=== PATIENT | female | born 1935 | race Caucasian/White ===

== ENCOUNTER 2016-10-11 13:12 | Inpatient (IN) | payer MEDICARE ==
[~2016-10-11] VITALS: Ht 152.4 cm; Wt 56.1 kg
--- NOTE | 2016-10-11 14:10 | NUR ---
PT ARRIVAL TO ROOM WITH TRANSPORT TEAM. PT RESTING IN BED. PT ON ROOM AIR, LUNG SOUNDS CLEAR, O2 SATS 96%. PT WITH NG TUBE, CLAMPED. PT WITH COLOSTOMY, DRAINING SMALL AMOUNT OF LIQUID TANNISH STOOL. PT COMPLAINT OF ABD PAIN 7/10, NAUSEATED, ABD MODERATELY DISTENDED, PARTICULARLY ON LEFT SIDE. ADMISSION COMPLETED.
--- NOTE | 2016-10-11 14:50 | NUR ---
DR. GONCALVES NOTIFIED OF PT ARRIVAL. VERBAL ORDERS RECEIVED, RBOV.
--- NOTE | 2016-10-11 17:55 | NUR ---
ASKED BY DR. GONCALVES TO EVALUATE PATIENT FOR A POTENTIAL PICC LINE PLACEMENT. AFTER REVIEWING THE CHART AND INTERVIEWING THE PATIENT, NO ABSOLUTE CONTRAINDICATIONS WERE IDENTIFIED. PATIENT AGREEABLE TO PICC AND SIGNS CONSENT. PATIENT HAD JUST BEEN TRANSFERRED TO THIS FACILITY FROM [facility] AND WAS HAVING A HARD TIME WITH PERIPHERAL IV ACCESS. PATIENT NOTABLY HAD AN IV INFILTRATE IN HER LEFT AC AREA WHILE AT THE [facility], AND HER LEFT UPPER ARM REMAINS ECCHYMOTIC AND EDEMATOUS. RIGHT UPPER ARM WAS EVALUTED WITH THE SITE RITE U/S. BOTH THE BASILIC AND THE BRACHIAL VEINS WERE LOCATED AND IDENTIFIED POTENTIAL PICC LINE OPTIONS. BOTH VEINS WERE GREATER THAN 8 FR ON THE SITE RITE U/S. THE BRACHIAL VEIN WAS NOTED TO BE EVEN LARGER THAN THE BASILIC, BUT THE BASILIC WAS ATTEMPTED FIRST IT IS FARTHER AWAY FROM THE BRACHIAL ARTERY THAN THE BRACHIAL VEIN. BASILIC VEIN WAS ACCESSED UPON FIRST ATTEMPT AND PICC PROCEDURE WAS CONTINUED WITHOUT DIFFICULTIES. PICC WAS SECURED TO PATIENT'S ARM WITH 8 CM LEFT EXPOSED. WAITING FINAL CHEST XRAY CONFIRMATION AT THIS TIME. PATIENT ENCOURAGED TO ASK QUESTIONS ABOUT HER PICC LINE AND EDUCATION MATERIAL LEFT WITH PATIENT'S CHART.
--- NOTE | 2016-10-11 18:06 | NUR ---
DR. GONCALVES IN ROOM ASSESSING PATIENT AND APPROVAL GIVEN FOR PICC LINE USE PER DR. GONCALVES. REPORT GIVEN TO KORTNEY DA SILVA.
--- NOTE | 2016-10-11 18:47 | NUR ---
PT COMPLAINT OF PAIN AND NAUSEA. 0.5 MG IV DILAUDID AND 12.5 MG IV PHENERGAN GIVEN. PT RESTING IN BED. IV FLUIDS INFUSING TO LUDIVINA PICC. NG TUBE TO LIWS, DRAINING SMALL AMOUNT OF BROWNISH FLUID. PT DENIES OTHER NEEDS AT THIS TIME.
--- NOTE | 2016-10-11 19:10 | NUR ---
RECEIVED REPORT FROM DAY SHIFT RN. PATIENT IS RESTING IN BED. DR BOLAÑOS IN THE ROOM TO EVALAUATE PATIENT.
--- NOTE | 2016-10-11 19:30 | NUR ---
PT VOIDING 50 ML SINCE ADMISSION, BLADDER SCAN FOR [address] GONCALVES NOTIFIED, TELEPHONE ORDER TO PLACE NEWBY CATHETER IIF PT WILLING TO HAVE CATHETER.
--- NOTE | 2016-10-11 19:36 | NUR ---
PT TRANSFERED FROM [facility]. PT ALERT/ORIENTED. PT ON ROOM AIR, CONTINUOUS PULSE OX IN PLACE. PT WITH NG TUBE TO LIWS, DRAINING SMALL AMOUNT OF BROWN FLUID, PT IS NPO. PT WITH COLOSTOMY, SMALL AMOUNT OF TANNISH LIQUID STOOL. PT SBA TO BSC, VOIDING SMALL AMOUNT, URINARY RETENTION, NEW ORDER FOR NEWBY CATH. SCDS IN PLACE. PICC LINE PLACED TO E, INFUSING D5LR AT 100 ML/HR.
--- NOTE | 2016-10-11 20:51 | NUR ---
PATIENT ASSESMENT COMPLETED. PATIENT DENIES ANY PAIN OR NAUSEA AT THIS TIME. PATIENTS EVENING MEDICATIONS GIVEN PER ORDER. NEW NEWBY PLACED PER MD ORDER. PATIENT TOLERATED ACITIVY WELL. PATIENT HAS NG THAT IS ON LOW-INT SUCTION. PATIENT IS NPO AT THIS TIME. PATIENT MAY HAVE HARD CANDY. PATIENT HAS SCDS IN PLACE. PATIENT IS ON A PULSE OX THAT WAS RN INITIATED ON DAY SHIFT PATIENT IS SENSITIVE TO PAIN MEDICATION. PATIENT HAS A PICC ON HER UPPER RIGHT ARM THAT IS INFUSING. PATIENT DENIES ANY FURTHER NEEDS AT THIS TIME. CALL LIGHT IN REACH.
--- NOTE | 2016-10-11 22:21 | NUR ---
ABX DONE INFUSING. PATIENT CONTINUES TO HAVE IV FLUID INFUSING. PATIENT IS RESTING IN BED WITH EYES CLOSED. PATIENTS PULSE OX READINGS ARE WNL. CALL LIGHT IN REACH.
--- NOTE | 2016-10-12 00:31 | NUR ---
PATIENT GIVEN MOUTH SWABS PER REQUEST. PATIENT DENIES ANY PAIN AT THIS TIME. PATIENT DENIES ANY NAUSEA. NG CONTNUES TO BE ON LOW-INT SUCTION. PATIETNT HAS A NEWBY ON PLACE OUTPUT IS QS, URINE IS YELLOW IN COLOR. PATIENT DENIES ANY FURTHER NEEDS CALL LIGHT IN REACH.
--- NOTE | 2016-10-12 02:36 | NUR ---
PATIENTS VITALS TAKEN AND RECORDED. PATIENTS 0200 MEDICATIONS GIVEN PER PER ORDER. PATIENT DENIES ANY PAIN OR NAUSEA. PATIENT DENIES ANY NEEDS AT THIS TIME. CALL LIGHT IN REACH.
--- NOTE | 2016-10-12 04:16 | NUR ---
PATIENT IS RESTING IN BED WITH EYES CLOSED. PATIENTS PULSE OX READINGS ARE WNL. PATIENT CONTINUES TO HAVE NG ON LOW-INT SUCTION. CALL LIGHT IN REACH,
--- NOTE | 2016-10-12 05:05 | NUR ---
PATIENT RESTED WELL THROUGHOUT THE SHIFT. PATIENT DENIED ANY PAIN OR NAUSEA. PATIENT IS NPO, BUT MAY HAVE HARD CANDY. PATIENT HAS AN NG IN PLACE THAT IS ON LOW-INT SUCTION. PATIENT HAS ON SCDS AND PULSE OX. PATIENT HAS A NEWBY IN PLACE FOR RETENTION. URINE OUTPUT IS QS. PATIENT IS AAOX3 AND USES CALL LIGHT APPROPRIATELY. PATIENT HAS COLOSTOMY. PATIENT HAS PICC IN RIGHT UPPER ARM AND IS INFUSING WELL.
--- NOTE | 2016-10-12 05:54 | NUR ---
PATIENT IS RESTING IN BED. PATIENTS MORNING VITALS TAKEN AND RECORDED. PATIENT DENIES AN PAIN OR NAUSEA AT THIS TIME. PATIENT HAS 175 OUT IN NG FOR THE WHOLE SHIFT. PATIENT HAS NO CHANGES IN OUTPUT OF COLOSTOMY. PATIENT DENIES ANY NEEDS AT THIS TIME. CALL LIGHT IN REACH.
--- NOTE | 2016-10-12 07:10 | NUR ---
BEDSIDE HANDOFF REPORT RECIEVED FROM SANITARIAN INSPECTOR RN. PT RETURNED FROM XRAY.
--- NOTE | 2016-10-12 09:06 | NUR ---
LABS TODAY INDICATE SLIGHTLY LOW PHOS AND K+. MG+ IS NORMAL. TALKED WITH YENNIFER, PHARMACIST, ABOUT POSSIBLY STARTING TPN AT HALF THE NORMAL RATE FOR 2 LITERS SINCE PATIENT COULD BE AT RISK FOR REFEEDING. HER BMI IS NORMAL AT 24, BUT SHE HAS A LOT GOING ON MEDICALLY. YENNIFER WILL TALK WITH DR. GONCALVES TO SEE IF HE IS OK WITH STARTING THE TPN AT HALF THE RATE. MONITOR LABS FOR THE FIRST 24 HOURS OF TPN START. IF PHOS AND K+ NORMALIZE, THEN RATE CAN INCREASE TO 83 ML/HR. GLUCOSE WAS 119. NO PREALBUMIN ORDERED. WILL CONTINUE TO MONITOR.
--- NOTE | 2016-10-12 09:30 | NUR ---
PT RESTING IN BED. PT COMPLAINT OF PAIN AND NAUSEA, REQUESTING MEDICATION, 12.5 MG PHENERGAN AND 0.5 MG IV DILAUDID GIVEN. PT ON ROOM AIR, 02 SATS 96%, LUNG SOUNDS CLEAR. BOWEL TONES ACTIVE, NG TUBE TO LIWS, DRAING GREEN/BROWN FLUID. COLOSTOMY IN PLACE, SMALL AMOUNT OF REINIER PRESENT. NEWBY CATH IN PLACE, DRAINING FREELY. IV FLUIDS INFUSING D5LR AT 100 ML/HR, IV ABX INFUSING. PT DENIES OTHER NEEDS AT THIS TIME.
--- NOTE | 2016-10-12 11:31 | CONS ---
[facility] [address], [place] [address] Signed DATE OF CONSULTATION: 10/11/16 REFERRING PHYSICIAN: Dr. Nakul Overton. CHIEF COMPLAINT: Abdominal distention with decreased ileostomy output. HISTORY OF PRESENT ILLNESS Felisa is an 80-year-old female I first met back in October 2011. She has had a number of previous abdominal surgeries including an open cholecystectomy, open appendectomy and an open complete hysterectomy with removal of the uterus and the ovaries. She has also undergone an open right colectomy for what was presumed to be a co l on cancer. She had presented back in 2011 to [facility] in [place], [place]. She had a bowel obstruction. Dr. Gumaro Eubanks had treated her conservatively without any improvement. He took her to the operating room for 6 hours of extensive lysis of adhesions to free up her entire abdomen. There was no enterotomy during that surgery. She was doing well initially. She was turned over to Dr. Jeff Fonseca after a few days. She developed purulence in the wound on postoperative day 6. Of course, t h e wound was opened and treated conservatively. A CT scan was performed. There were no obvious intraabdominal infections. She had a little postoperative fluid in the pelvis. Unfortunately, fecalith material began to drain through the wound. She was then transferred to [facility]. She went back to surgery and there was discussion of some damage to the mesentery of the colon and apparently an additional portion of the proximal transverse colon was then removed. She was then given a right lower quadrant Leah ileostomy. Of course, the wound was left open and she was taken back daily for washout of the abdomen. Eventually she was closed. During several of these washouts, there was bile noted in the right upper quadrant possibly from a w all surface on the edge of the liver. Therefore, she underwent an ERCP with sphincterotomy and placement of an endobiliary stent. She also had a duodenal stent placed. Eventually these stents were removed. The bile leak resolved. During all this, she developed a blood clot in her soleal vein. When placed on her anticoagulation, she bled from the sphincterotomy site. The anticoagulation had to be stopped and an inferior vena cava filter was placed. Unfortunately, she aspirated when taking p.o. and ended up with pneumonia. In due time, she improved and made her way back to [place], [place]. She slowly but surely improved and she had a nasoenteric feeding tube in place. She continues to live in [place], [place] with her . Apparently he has a little Alzheimer's. She was cleaning her garage 3 days ago and felt she over did it. By the next day, she had abdominal distention with some nausea and she knew she had a bowel obstruction. She went to [facility] in [place]. An NG tube was placed with return of clear green bilious fluid. It was not a particularly large amount. She has had several peripheral IVs placed and unfortunately her peripheral veins are quite fragile. During all of this, she did undergo a CT scan and there is mention of infiltrate in the left lower lobe with maybe cavity and/or some cyst. However, Felisa does not feel like she has any pulmonary symptoms. I was called earlier today by Dr. Overton while in office if I would accept Felisa in transfer here at [place] Electronically Signed By: RODRÍGUEZ GONCALVES MD 10/12/16 1131 PATIENT NAME: FELISA LUNA CONSULTATION DATE OF : 31 PHYSICIAN: RODRÍGUEZ GONCALVES MD REPORT #: [id number] REPORT IS CONFIDENTIAL AND NOT TO BE RELEASED WITHOUT AUTHORIZATION [facility] [address], [place] [address] Signed Hospital as a general surgeon distribution center manager. In the meantime, Felisa has arrived and we did have a PICC line placed because of her tenuous peripheral IV access. We will run IV fluids tonight and will be able to start our TPN tomorrow. In the meantime, she seems to be doing fi ne. ALLERGIES: Pro-Banthine, Risperdal and Stadol. MEDICATIONS Morphine extended release 15 mg 1 tablet p.o. b.i.d., fluticasone spray 2 sprays both nostrils daily, Loratadine 10 mg 1 tablet p.o. daily, levothyroxine 100 mcg p.o. daily, propranolol 20 mg p.o. b.i.d., omeprazole 40 mg 1 tablet p.o. b.i.d., sertraline 100 mg 1 tablet p.o. daily. PAST MEDICAL HISTORY Familial tremors, insomnia, paroxysmal atrial fibrillation, hypertension, deep vein thrombosis of the leg, aspiration pneumonia, dysphagia, esophageal reflux, constipation, right-sided colon cancer, hyperlipidemia, hypothyroidism, osteoporosis, possible type 2 diabetes, migraine headaches, depression, chronic pain syndrome, anemia and question of breast cancer. PAST SURGICAL HISTORY Tonsillectomy and adenoidectomy; right upper lobe lobectomy for lung cancer; bilateral prophylactic mastectomies; right colectomy in 1991 for colon cancer in [place], [place]; lysis of adhesions in the for small-bowel obstruction and again in 2012; open appendectomy; open cholecystectomy in the ; a full hysterectomy in the ; back surgery; bilateral rotator cuff repairs in 1993; a left shoulder replacement; ERCP with endoscopic sphincterotomy; placement of inferior vena cava filter; partial transverse colectomy with right lower quadrant Leah ileostomy in 2011. SOCIAL HISTORY She does not smoke or drink. She is and lives with her in [place], [place] Dr. Nakul Overton is her primary care provider. FAMILY HISTORY Brot her had lung cancer and a sister had throat cancer. Father had heart disease and at age 63. Mother had breast cancer at age 92. There have been no abnormal reactions to anesthesia. REVIEW OF SYSTEMS I reviewed 10 systems with Felisa today and we talked about her shoulder surgery. Otherwise, she has done pretty well since I have seen her last. VITAL SIGNS Blood pressure 128/68, heart rate 79, respiratory rate 18, temperature is 97.7. She is 5 Electronically Signed By: RODRÍGUEZ GONCALVES MD 10/12/16 1131 PATIENT NAME: FELISA LUNA CONSULTATION DATE OF : 31 PHYSICIAN: RODRÍGUEZ GONCALVES MD REPORT #: [id number] REPORT IS CONFIDENTIAL AND NOT TO BE RELEASED WITHOUT AUTHORIZATION [facility] [address], [place] [address] Signed feet, 56 kg. LABORATORY DATA Her white blood cell count is 8.5 with neutrophils 71, hemoglobin 10.8 with mean cell volume 89. BUN 24, creatinine is 1.30. Her GFR is 42, her albumin is 3.1. Urinalysis unremarkable. Her initial lactic acid was 2.8, I do not see a follow-up lactic acid level. RADIOGRAPHIC STUDIES I see the report from her CT scan of the abdomen and pelvis on 10/10/2016, all we have is impression and it says that there are distended fluid-filled loops of small bowel and then decompressed ilium leading up to her ileostomy and exact transition point is not known, there appears to be a left lower lobe infiltrate with some cystic structures and maybe some cavitation. PHYSICAL EXAMINATION GENERAL: Felisa is an 80-year-old female, lying supine in her hospital bed. I see the NG tube in place. There is clear green bile in the tube. She is alert, awake and interactive. She is under no acute distress. She is not systemically ill or toxic. LUNGS: Clear to auscultation bilaterally. HEART: Regular rate and rhythm with quiet systolic ejection murmur, maybe 2/6. ABDOMEN: Shows moderate distention, some moderate firmness, mildly tender but no peritoneal signs or symptoms. No evidence of any incisional hernias. She has an ileostomy in the right lower quadrant with just a little light brown to green colored fluid in the bag. RECTAL: Exam is not performed currently. ASSESSMENT AND PLAN Felisa is an 80-year-old female with a complex past medical history as listed above. Most likely, she has an adhesion causing her bowel obstruction with decreased ileostomy output. Unfortunately, she had a nearly frozen abdomen previously and it took 6 hours to get through her abdomen now that may or may not be true on this occasion but certainly something to keep in mind. Currently, we are going to treat her conservatively for the bowel obstruction. We have already placed the PICC line and we will start our TPN tomorrow, give her IV fluids tonight and leave the NG tube in place. She declined a Soni catheter at this time. In addition, we are going to start her on Rocephin and Zithromax for the presumed pneumonia and we will have our Internal Medicine Service see her with respect to medical evaluation and treatment. I have reviewed this with Felisa, she has expressed understanding and agrees with above plan. Rodríguez Goncalves MD Electronically Signed By: RODRÍGUEZ GONCALVES MD 10/12/16 1131 PATIENT NAME: FELISA LUNA CONSULTATION DATE OF : 31 PHYSICIAN: RODRÍGUEZ GONCALVES MD REPORT #: [id number] REPORT IS CONFIDENTIAL AND NOT TO BE RELEASED WITHOUT AUTHORIZATION [address] [place] [address] Signed /Katelynn /[id number] cc: Nakul Overton MD Electronically Signed By: RODRÍGUEZ GONCALVES MD 10/12/16 1131 PATIENT NAME: FELISA LUNA CONSULTATION DATE OF : 31 PHYSICIAN: RODRÍGUEZ GONCALVES MD REPORT #: [id number] REPORT IS CONFIDENTIAL AND NOT TO BE RELEASED WITHOUT AUTHORIZATION
--- NOTE | 2016-10-12 12:30 | NUR ---
PT RESTING IN BED. MD TO BEDSIDE. PT WITH HYPOACTIVE BOWEL TONES, CONTNIUES TO HAVE NAUSEA, NG TUBE TO LIWS. IV FLUIDS INFUSING AT 100 ML/HR. PT DENIES NEEDS AT THIS TIME.
--- NOTE | 2016-10-12 14:30 | NUR ---
PT REQUESTING PAIN MEDICATION AND ANTIEMETIC. GIVEN 0.5 MG IV DILAUDID AND 12.5 MG IV PHENERGAN. PT RESTING IN BED. DENIES OTHER NEEDS AT THIS TIME.
[2016-10-12] MEDS ORDERED: SERTRALINE HCL100 MG PO (15:28)
[2016-10-12] MEDS ORDERED: OMEPRAZOLE40 MG PO (15:29)
[2016-10-12] MEDS ORDERED: MORPHINE SULFAT15 M1 PO (15:30)
[2016-10-12] MEDS ORDERED: PROPRANOLOL HCL20 MG PO (15:32)
[2016-10-12] MEDS ORDERED: LEVOTHYROXINE100 MCG PO (15:32)
[2016-10-12] MEDS ORDERED: ONE DAILY1 EAC1 PO (15:33)
[2016-10-12] MEDS ORDERED: FLUTICASONE PRO16 GM NAS (15:34)
[2016-10-12] MEDS ORDERED: LORATADINE10 MG PO (15:34)
--- NOTE | 2016-10-12 15:35 | NUR ---
MED REC COMPLETE WITH [facility] MEDICATION REFILL LIST.
--- NOTE | 2016-10-12 16:30 | NUR ---
TPN INFUSION BEGAN, SECOND RN VERIFICATION OF TPN AGAINST ORDER. PT REQUESTING PAIN MEDICATION AND ANTIEMETIC, GIVEN 0.5 MG IV DILAUDID AND 12.5 MG PHENERGAN. PT DENIES OTHER NEEDS. PT ON ROOM AIR, O2 SATS 96%. NEWBY CATH IN PLACE, DRAINING YELLOW URINE. BOWEL TONES CONTINUE TO BE HYPOACTIVE, SMALL AMOUNT OF STOOL IN COLOSTOMY BAG, UNCHANGED.
--- NOTE | 2016-10-12 18:14 | NUR ---
PT ALERT/ORIENTED. PT ON ROOM AIR. NG TUBE TO LIWS. TPN BEGAN THIS EVENING, PT TOLERATING WELL. PT WITH ACTIVE TO HYPOACTIVE BOWEL TONES, CONTINUES TO HAVE NAUSEA, SMALL AMOUNT OF STOOL IN OSTOMY. PICC LINE TO LENNY PEÑA, INFUSING. PT SBA TO AMBULATE. NEWBY CATH IN PLACE, QS.
--- NOTE | 2016-10-12 18:25 | EKG ---
[facility] [address] [facility] [place] [address] Signed Normal sinus rhythm Nonspecific T wave abnormality Abnormal ECG No previous ECGs available Confirmed by TORIBIO BOLAÑOS MD ([id number]) on 10/12/2016 6:25:20 PM Electronically Signed By: TORIBIO BOLAÑOS MD 10/12/16 1825 PATIENT NAME: ANTONIO LUNA Electrocardiogram DATE OF : 31 PHYSICIAN: TORIBIO BOLAÑOS MD REPORT #: [id number] REPORT IS CONFIDENTIAL AND NOT TO BE RELEASED WITHOUT AUTHORIZATION
--- NOTE | 2016-10-12 19:33 | NUR ---
PT REQUESTING PAIN MEDICATION. PT RATES PAIN 7/10, 0.5 MG IV DILAUDID GIVEN. PT DENIES OTHER NEEDS AT THIS TIME.
--- NOTE | 2016-10-12 20:00 | NUR ---
RECEIVED REPORT AT 1900. FOUND PT IN BED RESTNG. PT COMPLAINED OF PAIN BEING 7/10. OTHERWISE PT SEEMED IN GOOD SPIRITS.
--- NOTE | 2016-10-12 22:20 | NUR ---
LABETALOL 5MG IV WAS HELD AT 2100 DUE TO A SBP OF 104. ALL LOBES ARE CLEAR. ALL QUADRANTS HAVE HYPOACTIVE BOWEL SOUNDS. PT COMPLAINED OF PAIN 7/10 AND NAUSEA. ANOTHER 0.5MG IV DILAUDED IV WAS GIVEN WELL 8MG OF IV ZOFRAN. ABD IN LOWER LEFT QUADRANT IS FIRM AND TENDER TO TOUCH. HER COLOSTOMY HAS OUTPUT BUT IT HAS LESSEND ACORDING TO PT. URINE OUTPUT SO FAR IS OK. NO NEW ISSUES NOTED THUS FAR.
--- NOTE | 2016-10-13 01:00 | NUR ---
PT COMPLAINED OF NAUSEA. 12.5MG OF PHENERGAN IV WAS GIVEN.
--- NOTE | 2016-10-13 02:57 | NUR ---
AT O230 PT RECEIVED ANOTHER 8MG OF ZOFRAN IV. PT NOW STATED THAT HER NAUSEA HAS NOT GOTTEN ANY BETTER. SHE STATED THAT IS SEEMS TO GET PROGRESSIVELY WORSE. PT HAS BEEN SPEETING UP BUT HAS NOT ACTUALLY VOMITED ON THIS SHIFT. CALLING MD BOLAÑOS AT THIS TIME.
--- NOTE | 2016-10-13 03:14 | NUR ---
PT IS STILL SLEEPING
--- NOTE | 2016-10-13 03:15 | NUR ---
MD BOLAÑOS DEFERED ME TO MD GONCALVES. MD GONCALVES GAVE ME AN ORDER FOR A ONE TIME SCOPALAMIN PATCH. PT IS USING BSC AT THIS TIME. PT IS MOVING WELL OVERALL. PT HAS BOWEL TONES IN RUQ, LUQ AND LLQ, PT ALSO STATED THAT COLOSTOMY BAG IS FILLED WITH GAS.
--- NOTE | 2016-10-13 04:00 | NUR ---
PT IS RESTING IN BED.
--- NOTE | 2016-10-13 05:10 | NUR ---
PT FOR THE MOST PART OF THIS SHIFT HAD UNCONTROLLED PAIN 7-09/20. PT WAS ALSO VERY NAUSEADED UNTIL ABOUT 0400. LABETALOL 5MG IV WAS HELD A 2100 AND AT 0200 DUE TO SBP OF 104 BOTH TIMES. MD GONCALVES WAS ALSO CALLED DUE TO THE PT INCREASES NAUSEA AND A SCOPALAMINE PATCH WAS ORDERED. IV LIPIDS ARE FININSHED. TPN IS STILL GOING. URINE OUTPUT IS ADEQUATE NG OUTPUT SO FAR HAS BEEN 100ML BY 0200. PT AT THIS TIME IS SLEEPING FOR THE FIRST TIME THIS SHIFT. PT HAS SOME IV MEDICATIONS THAT ARE DUE AT THE SAME TIME WHICH ARE NOT COMPATABLE. THE SAME GOES FOR SOME PRN IV MEDS. PLEASE SEE LIST IN PT ROOM BY COMPUTER.
--- NOTE | 2016-10-13 07:00 | NUR ---
BEDSIDE HANDOFF REPORT RECEIVED FROM HIGH SCHOOL CHEMISTRY TEACHER RN. PT SLEEPING. TPN INFUSING. NEWBY CATH IN PLACE, DRAINING FREELY.
--- NOTE | 2016-10-13 08:30 | NUR ---
PT RESTING IN BED, SLEEPY BUT AROUSABLE TO VOICE. NG TUBE TO LIWS. PT ON ROOM AIR, LUNG SOUNDS CLEAR, O2 SATS 98%. PT COMPLAINT OF NAUSEA AND ABDOMINAL PAIN. PT BOWEL TONES ACTIVE, SMALL AMOUNT OF LIQUID STOOL IN COLOSTOMY BAG. TPN INFUSING. IV ABX INFUSING. PT DENIES NEEDS AT THIS TIME, ALLOWED TO REST.
--- NOTE | 2016-10-13 10:27 | NUR ---
PT IS RAMA IN BED WITH NANCY LIGHT IN REACH. PT DID NOT NEED ANYTHING ELSE AT THE MOMENT
--- NOTE | 2016-10-13 10:30 | NUR ---
PT COMPLAINT OF NAUSEA AND ABD PAIN. GIVEN 1 MG IV DILAUDID AND 8 MG IV ZOFRAN. DRAW SHEET AND PERICARE PERFORMED. PT DENIES OTHER NEEDS AT THIS TIME.
--- NOTE | 2016-10-13 11:00 | NUR ---
FAMILY AT BEDSIDE, REQUESTING PT UPDATE. DISCUSSED PLAN OF CARE WITH FAMILY. FAMILY REQUESTING TO SPEAK WITH MD ABOUT PLAN, MESSAGE LEFT FOR DR. GONCALVES.
--- NOTE | 2016-10-13 13:48 | NUR ---
PT ASSISTED TO SHOWER. PT ENCOURAGED TO SIT IN CHAIR, WAS TIRED AFTER SHOWER, ASSITED TO BED. NG TO LIWS. TPN INFUSING. PT PROVIDED WITH WARM BLANKET, DENIES OTHER NEEDS AT THIS TIME, FAMILY AT BEDSIDE.
--- NOTE | 2016-10-13 13:51 | NUR ---
PT SHOWERED AND IS NOW BACK IN BED RESTING SAFELY WITH CALL LIGHT IN REACH. PT ASKED FOR A WARM BLANKET
--- NOTE | 2016-10-13 15:42 | NUR ---
PT RESTING IN BED. PT RATING PAIN 7/10, UNCHANGED. PT GIVEN 1 MG IV DILAUDID. PT DENIES OTHER NEEDS.
--- NOTE | 2016-10-13 16:02 | NUR ---
NEW TPN BAG INFUSING, DOUBLE RN VERIFICATION OF ORDER AND TPN WITH ORLY SHEETS. PT RESTING IN BED. PT DENIES NEEDS AT THIS TIME.
--- NOTE | 2016-10-13 17:17 | NUR ---
PT RESTING IN BED. PT COMPLAINT OF NAUSEA. GIVEN 8 MG IV ZOFRAN. PT DENIES OTHER NEEDS AT THIS TIME.
--- NOTE | 2016-10-13 18:17 | NUR ---
PT ALERT/ORIENTED, SLEEPY DURING MOST OF SHIFT. PT ON ROOM AIR, CONTINUOUS PULSE OX IN PLACE, O2 SATS 96%. PT BOWLE TONES CONTINUE TO BE HYPOACTIVE TO ACTIVE. RECEIVING ZOFRAN, PHENERGAN, FOR NAUSEA, SCOPALAMINE PATCH IN PLACE. PAIN CONTROLLED WITH 1MG IV DILAUDID. SMALL AMOUNT OF WATER STOOL IN COLOSTOMY. RECEIVING TPN. NEWBY CATH IN PLACE, QS.
--- NOTE | 2016-10-13 18:18 | NUR ---
PT IS RESTING IN BED WITH EYES COSED, RESPERATION EVEN. PT WOKE UP FOR VITAS AND IS NOW TRYING TO FALL BACK ASLEEP. PT DID NOT NEED ANYTHING JUST WANTED TO SLEEP
--- NOTE | 2016-10-13 19:10 | NUR ---
BEDSIDE REPORT RECEIVED FROM OFFGOING NURSE. PT LYING IN BED WITH EYES CLOSED, WAKES EASILY. DENIES NEEDS AT THIS TIME. CALL LIGHT WITHIN REACH.
--- NOTE | 2016-10-13 20:20 | NUR ---
PT ASSESSMENT COMPLETED. BT'S ACTIVE. ABD DISTENDED. PT REPORTS TENDERNESS TO LLQ SPECIFICALLY. PT RATES PAIN 6.5/10, REQUESTS PAIN MEDICATION. PAIN MEDICATION ADMINISTERED. PT DENIES OTHER NEEDS AT THIS TIME. CALL LIGHT WITHIN REACH.
--- NOTE | 2016-10-13 22:20 | NUR ---
PT CALLS REQUESTING MEDICATION FOR NAUSEA. PHENERGRAN ADMINSITERED ON THE PUMP OVER 10 MINUTES, DILUTED IN 20 OF NS. PT DENIES OTHER NEEDS AT THIS TIME. CALL LIGHT WITHIN REACH.
--- NOTE | 2016-10-14 00:42 | NUR ---
PT CALLS STATING SHE HAS NAUSEA. PRN ZOFRAN ADMINISTERED. PT ALSO RATES PAIN 7/10. PRN DILAUDID ADMINISTERED PT DENIES OTHER NEEDS AT THIS TIME. CALL LIGHT WITHIN REACH.
--- NOTE | 2016-10-14 02:00 | NUR ---
PT RESTING IN BED WITH EYES CLOSED. RESPIRATIONS EVEN AND UNLABORED. APPEARS TO BE SLEEPING. CALL LIGHT WITHIN REACH.
--- NOTE | 2016-10-14 02:08 | NUR ---
PATIENT IS LAYING ON HER BACK, EYES CLOSED, BREATHING 16 BPM.
--- NOTE | 2016-10-14 02:40 | NUR ---
PT RESTING WITH EYES CLOSED. WAKES EASILY FOR BP MEASUREMENT, QUICKLY FALLS BACK TO SLEEP WHILE MEDICATION BEING ADMINISTERED. CALL LIGHT WITHIN REACH.
--- NOTE | 2016-10-14 03:45 | NUR ---
PT RESTING WITH EYES CLOSED. PT DOES NOT AWAKE UPON LANDSCAPE ARCHITECT'S ENTRY. BRIEFLY AWAKES UPON IV BEING DISCONNECTED, AND QUICKLY FALLS BACK TO SLEEP RESPIRATIONS EVEN AND UNLABORED SAO2 96%. CALL LIGHT WITHIN PT REACH.
--- NOTE | 2016-10-14 05:27 | NUR ---
PT SLEPT THROUGHOUT THE NIGHT. DILAUDID X 2, PHENERGAN X2, AND ZOFRAN X 1. CPOX IN PLACE, PT ON RA. NEWBY CATH AND OSTOMY. OSTOMY DRAINING BROWN, WATERY LIQUID. BOWEL TONES ACTIVE. NG TUBE TO LOW INT. WALL SUCTION, DRAINING GREEN/BROWN LIQUID. DRAINED 150 THIS SHIFT. ABD REMAINS DISTENEDED, TENDER MEREDITH TO LLQ. SBA. DOUBLE LUMEN PICC WITH TPN @ 61.677. ACCUCHECKS.
--- NOTE | 2016-10-14 06:03 | NUR ---
PT UTILIZES CALL LIGHT, REPORTS NAUSEA. PRN PHENERGAN ADMINISTERED. DENIES OTHER NEEDS. CALL LIGHT WITHIN REACH.
--- NOTE | 2016-10-14 06:40 | NUR ---
PT UTILIZES CALL LIGHT, REQUESTS PAIN MEDICATION. RATES PAIN 8/10 TO LLQ. PRN DILAUDID ADMINISTERED. PT DENIES OTHER NEEDS. CALL LIGHT WITHIN REACH.
--- NOTE | 2016-10-14 07:07 | NUR ---
BEDSIDE HANDOFF REPORT RECEIVED FROM ASSOCIATE PROFESSOR COMPUTER SCIENCE RN. PT SLEEPING, LEFT UNDISTURBED, IV TPN INFUSING.
--- NOTE | 2016-10-14 08:00 | NUR ---
PT RESTING IN BED. PT SLEEPY, AROUSABLE TO VOICE. PT COMPLAINT OF NAUSEA, GIVEN 8 MG IV ZOFRAN. NG TUBE TO LIWS. TPN INFUSING. LUNG SOUNDS CLEAR, ON ROOM AIR. PT BOWEL TONES ACTIVE, SMALL AMOUNT OF TICKER STOOL AROUNDS STOMA, STOMACH REMAINS MODERATELY DISTENDED. CMS INTACT, NO EDEMA NOTED. PT DENIES NEEDS AT THIS TIME.
--- NOTE | 2016-10-14 11:38 | NUR ---
PT REQUESTING PAIN MEDICATION AND ANTIEMETIC. GIVEN 1 MG IV DILAUDID AND 12.5 MG IV PHENERGAN. TPN INFUSING. RED LUMEN, HEP LOCKED, DOES HAVE BLOOD RETURN. NG TUBE CONNECTED TO NEWBY BAG, TO GRAVITY. PT DENIES OTHER NEEDS AT THIS TIME.
--- NOTE | 2016-10-14 13:52 | NUR ---
PT RESTING IN BED. PT GIVEN IV ZOFRAN AND IV DILAUDID FOR PAIN AND NAUSEA. TPN CONTINUES TO INFUSE. IV ABX INFUSING. LUNG SOUNDS CLEAR. BOWEL TONES HYPERACTIVE, CONTINUES TO HAVE THICK STOOL IN OSTOMY. NG TUBE TO GRAVITY. PT DENIES OTHER NEEDS AT THIS TIME. ENCOURAGED TO SIT IN CHAIR OR WALK AGAIN THIS AFTERNOON.
--- NOTE | 2016-10-14 17:17 | NUR ---
PT REQUESTING PAIN MEDICATION AND ANTIEMETIC. GIVEN 12.5 MG IV PHENERGAN AND 1 MG IV DIALUDID. PT RESTING IN BED. PT DENIES NEEDS AT THIS TIME.
--- NOTE | 2016-10-14 18:05 | NUR ---
PT WITH IMRPOVMENT TODAY, HAD MODERATE AMOUNT OF THICK STOOL IN OSTOMY. PT CONTINUES TO HAVE NAUSEA AND ABD PAIN. ZOFRAN, PHENERGAN, DILAUDID GIVEN, SCOPALAMINE PACTH IN PLACE. PT SAT IN CHAIR. BOWEL TONES HYPERACTIVE THIS EVENING. NG TUBE PLACED TO GRAVITY. NEWBY IN PLACE, QS. TPN INFUSING.
--- NOTE | 2016-10-14 19:15 | NUR ---
BEDSIDE REPORT RECEIVED FROM OFFGOING NURSE. PT LYING IN BED WITH EYES CLOSED. WAKES EASILY. PT DENIES NEEDS AT THIS TIME. CALL LIGHT WITHIN REACH.
--- NOTE | 2016-10-14 20:35 | NUR ---
PT ASSESSMENT COMPLETED. PT RESTING IN BED WITH EYES CLOSED, WAKES EASILY. FALLS BACK TO SLEEP EASILY. NG TUBE TO NEWBY BAG, GRAVITY DRAIN. BOWEL TONES ACTIVE. ABD REMAINS DISTENED, TENDER TO THE TOUCH. OSTOMY PUTTING OUT SOFT STOOL. NEWBY DRAINING CLEAR YELLOW URINE. PT REQUESTS TO HAVE PULL UP ATTEND PLACED FOR "LEAKAGE". PT ABLE TO SIT AT BEDSIDE, AND STAND WITH ASSISTANCE. PT REPORTS PAIN 6-7/10.
--- NOTE | 2016-10-14 21:55 | NUR ---
PT CALLS, REQUESTS PAIN MEDICATION. RATES PAIN 6-7/10 TO ABDOMEN. PRN DILAUDID ADMINISTERED. PT REPORTS IMPROVEMENT AFTER ADMINISTRATION. PT DENIES OTHER NEEDS AT THIS TIME. CALL LIGHT WITHIN REACH.
--- NOTE | 2016-10-15 00:19 | NUR ---
PT RESTING IN BED WITH EYES CLOSED. RESPIRATIONS ARE EVEN AND UNLABORED. PT APPEARS TO BE SLEEPING WITH CALL LIGHT IN REACH.
--- NOTE | 2016-10-15 02:00 | NUR ---
PT CALLS, REQUESTS MEDICATION FOR NAUSEA. PRN PHENERGAN ADMINISTERED. PT RATES PAIN 6/10 TO LLQ. PT ASSESSMENT COMPLETE. PT DROWSY, EYES REMAIN CLOSED THROUGHOUT ASSESSMENT. ABD CONTINUES TO BE DISTENDED, TENDER TO PALPATION. BT'S ACTIVE. COLOSTOMY PUTTING OUT SOFT BROWN STOOL. NG TUBE TO NEWBY BAG AT BEDSIDE. URINE CATHETER PUTTING OUT CLEAR YELOW URINE.RED LUMEN TO PICC LINE FLUSHES, UNABLE TO DRAW BLOOD BACK. PT DENIES OTHER NEEDS AT THIS TIME. PT STATES SHE "FEELS GOOD" WHEN ASKED IF NAUSEA IS RESOVED. NANCY LIGHT WITHIN REACH.
--- NOTE | 2016-10-15 03:43 | NUR ---
PT USES CALL LIGHT, REQUESTS PAIN MEDICATION. PT RATES PAIN 7/10 TO ABD. PRN DILAUDID ADMINISTERED. PT DENIES OTHER NEEDS. CALL LIGHT WITHIN REACH.
--- NOTE | 2016-10-15 05:31 | NUR ---
PT SLEPT MAJORITY OF SHIFT. DILAUDID X2 FOR ABD PAIN, PHENERGAN X 1 FOR NAUSEA. ABDOMEN REMAINS DISTENDED, TENDER TO PALPATION. BT'S ACTIVE. COLOSTOMY PUTTING OUT SOFT STOOL, THICKER THAN PREVIOUS. NEWBY DRAINING CLEAR YELLOW URINE.NG TUBE TO GRAVITY. PICC TO RAC, DOUBLE LUMEN. TPN INFUSING @ 83.8. RED LUMEN FLUSHES, NO BLOOD RETURN. SBA.
--- NOTE | 2016-10-15 07:28 | NUR ---
BEDSIDE REPORT RECEIVED FROM SHARON SHEETS. PT SLEEPING UPON INITIAL CHECK ON PATIENT. PATIENT CALLED USING CALL LIGHT AND ASKED FOR PAIN MEDICATION. NG TUBE TO GRAVITY. NEWBY CATHETER IN PLACE. CONTINUOUS PULSE OX IN PLACE. TPN INFUSING.
--- NOTE | 2016-10-15 08:33 | NUR ---
PATIENT IN BED. WASHED FACE AND HANDS WITH WASH CLOTH. PATIENT STATES THAT SHE WOULD LIKE TO SHOWER LATER TODAY. NO OTHER NEEDS AT THIS TIME.
--- NOTE | 2016-10-15 08:36 | NUR ---
BLINDS RAISED IN ROOM. PT AWAKE WATCHING TELEVISION. UNASYN INFUSING NOW. TPN INFUSING AT 83.8ML/HR. DILAUDID GIVEN FOR ABD PAIN. FSBS 149. POSITIVE BOWEL TONES. COLOSTOMY DRAINING SOFT STOOLS.
--- NOTE | 2016-10-15 10:38 | NUR ---
NG TUBE AND NEWBY CATHETER REMOVED PER MD ORDERS. CLEAR LIQUID DIET STARTED. NPO SIGN REMOVED FROM DOOR. CLEAR ENSURE APPLE JUICE PROVIDED TO PATIENT. EDUCATED PATIENT TO AIM TO URINATE BY 1400.
--- NOTE | 2016-10-15 13:00 | NUR ---
PATIENT UP TO SHOWER ONE PERSON ASSIST. PATIENT HAD TO GRAB ONTO THE WALL AND COUNTER TOP TO KEEP STEADY. SHOWER, ORAL, AND SKIN CARE DONE. PATIENT BACK TO CHAIR 2 PERSON ASSIST. PATIENT CHANGED HER COLOSTOMY BAG. NANCY BUTTON IN REACH. FRESH WATER GIVEN. NO OTHER NEEDS AT THIS TIME.
--- NOTE | 2016-10-15 14:00 | NUR ---
PATIENT UP TO SHOWER IN SHOWER CHAIR. NEWBY CARE DONE. PATIENT BACK TO BED. BRACE ON LEFT FOOT. SCD'S ON. CALL BUTTON IN REACH. WARM BLANKET AND FRESH ICE WATER GIVE. NO OTHER NEEDS AT THIS TIME. PATIENT HAS 2 GUEST IN ROOM.
--- NOTE | 2016-10-15 14:41 | NUR ---
PATIENT BACK TO BED ONE PERSON ASSIST WITH WALKER. WARM BANKET GIVEN. CALL BUTTON IN REACH. NO OTHER NEEDS AT THIS TIME.
--- NOTE | 2016-10-15 18:06 | NUR ---
sunshine catheter and NG tube removed. no nausea. clear liquid diet started. tolerating well. unasyn IV. Lipids and TPN started at 1600. SBA with FWW.
--- NOTE | 2016-10-15 19:05 | NUR ---
RECEIVED REPORT FROM KORTNEY HERRON. PATIENT HAS NO NEEDS AT THIS TIME.
--- NOTE | 2016-10-15 20:07 | NUR ---
EVENING MEDICATIONS GIVEN AND ASSESSMENT DONE. PATIENT RATES PAIN AT 7/10 IN q OF ABD. PAIN MEDICATION ADMINISTERED PER EMAR. PATIENT HAS NO OTHER NEEDS AT THIS TIME.
--- NOTE | 2016-10-15 23:02 | NUR ---
PATIENT STATES SHE IS HAVING 7/10 PAIN IN LLQ OF ABD. PAIN MEDICATION ADMINISTERED PER EMAR. NO OTHER NEEDS AT THIS TIME.
--- NOTE | 2016-10-16 00:02 | NUR ---
PATIENT IS RESTING IN BED, DENIES ANY NEEDS AT THIS TIME. NO COMPLAINTS OF PAIN.
--- NOTE | 2016-10-16 02:30 | NUR ---
MEDICATION GIVEN AND ASSESSMENT DONE. PATIENT HAS NO NEEDS AT THIS TIME.
--- NOTE | 2016-10-16 05:03 | NUR ---
PATIENT STATES SHE HAS 7/10 PAIN IN LLQ OF ABD. AND HAS NAUSEA. MEDICATION ADMINISTERED PER EMAR. NO OTHER NEEDS AT THIS TIME.
--- NOTE | 2016-10-16 05:31 | NUR ---
PATIENT HAS BEEN ASLEEP THROUGHOUT NIGHT. PATIENT COMPLAINED OF LLQ ABD PAIN AND NAUSEA. MEDICATION GIVEN PER EMAR. VSS. NO ACUTE CHANGES FROM BEGINNING OF SHIFT ASSESSMENT. INTENTIONAL ROUNDING DONE WITH ALL PATIENT'S NEEDS MET.
--- NOTE | 2016-10-16 07:31 | NUR ---
PATIENT SLEEPING IN BED AT THIS TIME. ALLOWING PATIENT TO SLEEP. TPN INFUSING INTO PICC LUDIVINA AT 83.8ML/HR. PUMP PROGRAMMED TO MED/SURG. WHITEBOARD UPDATED. BEDSIDE TABLE PLACED WITHIN PATIENT REACH.
--- NOTE | 2016-10-16 11:04 | NUR ---
PATIENT DOESN'T WANT TO TAKE A SHOWER UNTIL 4:30 OR LATER.
[2016-10-16] MEDS ORDERED: AUGMENTIN 875-1 EACH PO (11:54)
--- NOTE | 2016-10-16 14:58 | NUR ---
TPN STOPPED. AT BEDSIDE. PT UP TO BATHROOM NOW. WILL REMOVE PICC LINE AND DISCHARGE PATIENT AFTER SHE IS DRESSED.
--- NOTE | 2016-10-17 11:24 | DS ---
[facility] [address], [place] [address] Signed DATE OF DISCHARGE: 10/16/16 FINAL DIAGNOSES Resolved partial small-bowel obstruction. Left lower lobe pneumonia. PROCEDURES CT scan of abdomen and pelvis. Chest x-rays. PICC line placement, right upper extremity. HISTORY OF PRESENT ILLNESS Felisa is an 80-year-old female, who I know previously. She and her live on a ranch down in [place], [place]. Their son now runs the ranch. She has previous abdominal surgery to include an open cholecystectomy, open appendectomy, open full hysterectomy, and an open right colectomy for cancer. She then had to have lysis of adhesions with Dr. Mcdermott over in the [place] area. She spent six weeks in the hospital afterwards waiting for her GI function to return. She then developed recurrent bowel obstruction a number of years ago and went up to [facility] in [place], [place]. Dr. Gumaro Eubanks did her lysis of adhesions for six hours and apparently there were no enterotomies. The abdomen was closed along with the skin. Dr. Jeff Fonseca took over a week later, and she started to have pus out of the wounds so that was opened and then stool began to come out of the wound. She was then transferred to [facility]. She went back to surgery and had several days in a row to have abdominal washouts. There was some mention of damage to the mesentery so part of the proximal transverse colon was taken down, and she was given an ileostomy in the right lower quadrant. There was also some bile leak from the edge of the liver and so she had an ERCP with endoscopic sphincterotomy with endobiliary stent placement along with a duodenal stent placed. Apparently, they told the family they were not sure if she would live through all her procedures. Eventually, she regained herself and was discharged home with a nasoenteric feeding tube. That is when I met her here in [place], [place]. There was some consideration of giving her a PEG tube, but she was doing well. The nasoenteric feeding tube was removed and she was able to take diet by mouth. There was some question on whether or not she was swallowing well and whether she had aspiration pneumonia at [facility]. She has been doing well over the last several years. She then was out working in the [employer] and said she over did it. She knew the next day she had a bowel obstruction. She had gone to [facility] down in [place], [place]. She had very difficult peripheral IV access and so I was asked to admit her up at [facility] in [place], [place]. We immediately placed a PICC line and started her TPN. We continued to treat her conservatively with respect to the GI tract. She has regained her GI function at this point and is taking clear liquid diet and having over 500 mL of output in the ileostomy e ach day. She said that is her Electronically Signed By: RODRÍGUEZ GONCALVES MD 10/17/16 1124 PATIENT NAME: FELISA LUNA DISCHARGE SUMMARY DATE OF : 31 PHYSICIAN: RODRÍGUEZ GONCALVES MD REPORT #: [id number] REPORT IS CONFIDENTIAL AND NOT TO BE RELEASED WITHOUT AUTHORIZATION [facility] [address], [place] [address] Signed baseline. She also had a left lower lobe pneumonia, and she was given Unasyn and Azithromycin by our Internal Medicine Service. She has continued to do well. Her white count is normal. Her abdominal exam is back to baseline. There is no distention. There is no tympany. There is no tenderness. At this point, she has made good progress, and we are going to discharge her to home. DISCHARGE PLANS AND MEDICATIONS She will go home on Augmentin 875 mg p.o. twice a day for two more days. She can resume all her chronic medications. I have asked her to follow a low residue diet for couple of weeks and then advance back to a regular diet. She can perform her activities of daily living including walking up and down stairs and showering and bathing as needed. If she is going to take extended-release morphine, she might consider a stool softener or little MiraLAX each day along with some Benefiber. I have discussed all of this with Felisa, her , and her son Lul. They have all expressed understanding and agreed with above plan. She is going to follow up with her primary care provider, Dr. Nakul Overton in [place], [place] in the next week or so. She is welcome to follow up in my office as needed. I explained to Felisa, her , and her son that should she need abdominal surgery in the future, she might consider strongly going straight to [facility] where they have the support assistant available to her in case she has yet a third episode of tremendous lysis of adhesions. They have expressed understanding and agreed with the above plan. MD BERTHA Ball/Katelynn /[id number] cc: Nakul Overton MD Electronically Signed By: RODRÍGUEZ GONCALVES MD 10/17/16 1124 PATIENT NAME: FELISA LUNA DISCHARGE SUMMARY DATE OF : 31 PHYSICIAN: RODRÍGUEZ GONCALVES MD REPORT #: [id number] REPORT IS CONFIDENTIAL AND NOT TO BE RELEASED WITHOUT AUTHORIZATION
== END 2016-10-16 15:30 | disposition home or self-care (01) | DRG 388 ==
LOC: MS 13:12
PROVIDERS: ADMIT Colon & Rectal Surgery
PROC: 02HV33Z Insertion of Infusion Device into Superior Vena Cava, Percutaneous Approach (ICD-10-PCS; principal; 2016-10-11)
DX: K56.60 Unspecified intestinal obstruction (principal); J18.9 Pneumonia, unspecified organism; I48.0 Paroxysmal atrial fibrillation; I10 Essential (primary) hypertension; G89.4 Chronic pain syndrome; E03.9 Hypothyroidism, unspecified; F39 Unspecified mood [affective] disorder; G25.81 Restless legs syndrome; Z98.0 Intestinal bypass and anastomosis status; Z85.038 Personal history of other malignant neoplasm of large intestine; Z93.2 Ileostomy status
CPT/HCPCS: 36415; 71010; 74020; 80048; 80053; 80061; 83735; 84100; 84134; 85025; 85610; 85730; 87070; 87205; 87449; 87899; 93005; 93010; 94760; 94762; J0295; J0456; J1170; J1644; J2405; J2550; J3430; J3475; J7060; J7120

== ENCOUNTER 2017-12-12 09:59 | Day surgery (SDC) | payer MEDICARE ==
[~2017-12-12] VITALS: Ht 152.4 cm; Wt 49.9 kg
[~2017-12-12 09:59] MED LIST: AUGMENTIN 875-1 EACH PO; FLUTICASONE PRO16 GM NAS; LEVOTHYROXINE100 MCG PO; LOPERAMIDE2 M1 PO; LORATADINE10 MG PO; MORPHINE SULFAT15 M1 PO; OMEPRAZOLE40 MG PO; ONE DAILY1 EAC1 PO; PROPRANOLOL HCL20 MG PO; SERTRALINE HCL100 MG PO
--- NOTE | 2017-12-12 12:40 | NUR ---
12/12/17 1240 Oneyda Nugent 1226- PT ARRIVES TO PACU EASILY AROUSABLE TO VOICE. INSTANTLY FALLS BACK TO SLEEP WHEN NOT BEING TALKED TO. PT ON 3L VIA NC. OXYGEN SAT 100% ON THIS. PT REPORTS PAIN A 7/10, STATES THIS IS THE PAIN SHE HAS BEEN HAVING. REPORTS NO NEW PAIN. EDUCATED PT TO NOTIFY THIS RN IF SHE IS HAVING NEW PAIN OR INCREASED PAIN. PT DENIES WANTING ANYTHING FOR PAIN AT THIS TIME. 1232- OXYGEN TURNED OFF. OXYGEN SAT MID TO HIGH 90'S ON RA.
--- NOTE | 2017-12-12 20:50 | EKG ---
[facility] [address] [facility] [place], [place] [address] Signed Normal sinus rhythm Nonspecific ST and T wave abnormality Abnormal ECG When compared with ECG of 11-OCT-2016 15:45, No significant change was found Confirmed by BECKIE FERRARA MD ([id number]) on 12/12/2017 8:50:36 PM Electronically Signed By: BECKIE FERRARA MD 12/12/172049 PATIENT NAME: ANTONIO LUNA Electrocardiogram DATE OF : 31 PHYSICIAN: BECKIE FERRARA MD REPORT #: [id number] REPORT IS CONFIDENTIAL AND NOT TO BE RELEASED WITHOUT AUTHORIZATION
--- NOTE | 2017-12-16 08:13 | OR ---
[facility] [address], [place] [address] Signed DATE OF OPERATION: 12/12/2017 SURGEON: Ros Saab MD PREOPERATIVE DIAGNOSES: 1. Left-sided abdominal pain, episodic rectal mucoid discharge. 2. History of right colectomy with closed transverse colon and end ileostomy. POSTOPERATIVE DIAGNOSIS: Diversion colitis. PROCEDURE: Total colonoscopy to right transverse colon with multiple biopsies. ANESTHESIA: Intravenous sedation, propofol infusion. ANESTHESIOLOGIST: Eran Souza CRNA. INDICATION: This 82-year-old white woman is a patient of Dr. Overton of [place], [place]. She has a complex past history. In [place], [place], she underwent exploratory laparotomy a number of years ago by Dr. Gumaro Eubanks for small bowel obstruction. Lysis of adhesions was undertaken at that time. A few days later, there was stool emanating from the wound. She was then evaluated by Dr. Fonseca for possible fistula development and began to have progressive sepsis and was transferred to [facility] where she was operated upon by Dr. Zamora. This included a laparotomy and a finding of a perforation in the right colon. A right colectomy and ileostomy was performed with stapling of the right transverse colon. She had a rather prolonged and protracted hospital course due to general medical infirmity, it was deemed an unlikely candidate for re-anastomosis. In the past several months, she has had increasing left-sided abdominal pain, episodic mucoid discharge without bleeding and is here today to undergo colonoscopy. A strong suspicion for diversion colitis is made on my behalf. The risks of bleeding, infection, and perforation related to colonoscopy was reviewed with the patient and her family. They understand and wished to proceed. Electronically Signed By: ROS SAAB MD 12/16/17 0813 PATIENT NAME: ANTONIO LUNA OPERATIVE REPORT DATE OF : 31 REPORT #: [id number] PHYSICIAN: ROS SAAB MD PCP: JAGDISH LOVELACE MD REPORT IS CONFIDENTIAL AND NOT TO BE RELEASED WITHOUT AUTHORIZATION [facility] [address], [place] [address] Signed FINDINGS: The prep, she underwent was only a Fleet Enema as there was complete fecal diversion. Colonoscopy was undertaken to the right transverse colon, where the oversewn stapled area was identified. Throughout the colon exam, there was diversion colitis as predicted. There was no evidence of polyps, diverticular formation colitis, or cancer or other types of colitis. Final pathology is pending. DESCRIPTION OF PROCEDURE: The patient was brought to the endoscopy suite, placed in lateral decubitus position. Given her advanced ASA classification of IV, anesthesia support was used with propofol infusional technique. Full cardiopulmonary monitoring was maintained. After satisfactory sedation, digital rectal examination was performed showing no sign of neoplasm. An Olympus video colonoscope was passed in the rectum and manipulated throughout the colon. The mucosa of the rectum had a pale appearance with friability. With various manipulations, the scope was passed throughout the colon ultimately intubating the right transverse colon where the oversew or stapled site was noted. An inflammatory appearance was completely consistent with diversion colitis. There were no ulcerations proper. Biopsies were taken of the right transverse colon, scope was carefully withdrawn from that point, and random biopsies taken throughout including transverse, left sigmoid, and rectal areas. Retroflexed view of the rectum showed internal hemorrhoidal changes. Notably, there was no evidence of diverticular change, polyps, or cancer. Scope was removed. The patient was taken to the recovery room in good condition. 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 PLAN: Ones enthusiasm for re-anastomosis is tempered by her general medical infirmity, that would likely be the most appropriate solution for her problem. The remaining amount of colon is such that a rectal administration of short-chain fatty acids for a nutritive resuscitation of her colonic mucosa would be unlikely beneficial. I will review of their any newer techniques of management of this problem and we will see her back in a few weeks. By then, pathology reports will be available to confirm or refute the presumed diagnosis of diversion colitis. Ros Saab MD Electronically Signed By: ROS SAAB MD 12/16/17 0813 PATIENT NAME: ANTONIO LUNA OPERATIVE REPORT DATE OF : 31 REPORT #: [id number] PHYSICIAN: ROS SAAB MD PCP: JAGDISH LOVELACE MD REPORT IS CONFIDENTIAL AND NOT TO BE RELEASED WITHOUT AUTHORIZATION [address] [address] Signed NAN/JUSTIN /[id number] cc: MD Nakul Bhakta MD Copies: TJ ZAMORA MD, DANIEL C MD ~ Electronically Signed By: ROS SAAB MD 12/16/17 0813 PATIENT NAME: ANTONIO LUNA OPERATIVE REPORT DATE OF : 31 REPORT #: [id number] PHYSICIAN: ROS SAAB MD PCP: JAGDISH LOVELACE MD REPORT IS CONFIDENTIAL AND NOT TO BE RELEASED WITHOUT AUTHORIZATION
== END 2017-12-12 13:52 | disposition home or self-care (01) ==
LOC: DS 09:59 → OPS 09:59 → DS 11:00 → OPS 13:52
PROVIDERS: Surgery
PROC: 0DBL8ZX Excision of Transverse Colon, Via Natural or Artificial Opening Endoscopic, Diagnostic (ICD-10-PCS; 2017-12-12)
PROC: 0DBN8ZX Excision of Sigmoid Colon, Via Natural or Artificial Opening Endoscopic, Diagnostic (ICD-10-PCS; 2017-12-12)
PROC: 0DBP8ZX Excision of Rectum, Via Natural or Artificial Opening Endoscopic, Diagnostic (ICD-10-PCS; 2017-12-12)
PROC: 0DBM8ZX Excision of Descending Colon, Via Natural or Artificial Opening Endoscopic, Diagnostic (ICD-10-PCS; principal; 2017-12-12 11:00)
DX: K92.2 Gastrointestinal hemorrhage, unspecified (principal); K52.89 Other specified noninfective gastroenteritis and colitis; E03.9 Hypothyroidism, unspecified; Z85.038 Personal history of other malignant neoplasm of large intestine; Z85.3 Personal history of malignant neoplasm of breast; Z85.118 Personal history of other malignant neoplasm of bronchus and lung; Z90.49 Acquired absence of other specified parts of digestive tract; Z93.2 Ileostomy status; Z88.8 Allergy status to other drugs, medicaments and biological substances; Z79.891 Long term (current) use of opiate analgesic; Z79.899 Other long term (current) drug therapy
CPT/HCPCS: 88305; 93005; 93010; J0690; J2405; J2704; J7120